=== PATIENT | female | born 1980 | race Caucasian/White ===

== ENCOUNTER → 2016-11-12 | Outpatient (CLI) | payer BC | END | disposition home or self-care (01) | LOC: GMAB 16:34 | PROVIDERS: ATTEND Family Medicine | DX: Z00.00 Encounter for general adult medical examination without abnormal findings (principal) ==

== ENCOUNTER → 2017-05-14 | Outpatient (CLI) | payer BC ==
--- NOTE | 2017-05-15 08:08 | RAD ---
EXAM DESCRIPTION: Knee,Left Complete CLINICAL HISTORY: 36 years, Female, LOCALIZED [place] , [place] UNSPECIFIED COMPARISON: None TECHNIQUE: 4 views of the left knee FINDINGS: No fracture or dislocation. Bones appear normally mineralized with normal trabecular pattern. Normal appearance of medial and lateral compartments on frontal view. Lateral view shows normal position of the patella. No patellar spurring or enthesopathy. No suprapatellar knee joint effusion. Normal contour of quadriceps and patellar tendons. No abnormal patellar tilt or subluxation on patellar sunrise view. IMPRESSION: Negative for fracture or dislocation. Electronically signed by: Ortega Joya MD 05/15/2017 8:05 AM CDT
== END ==
LOC: RAD 09:18
PROVIDERS: ATTEND Orthopaedic Surgery
DX: R22.9 Localized swelling, mass and lump, unspecified (principal)

== ENCOUNTER → 2018-03-15 | Outpatient (CLI) | payer BC | LOC: GMAE 16:52 | PROVIDERS: ATTEND Family Medicine | DX: R53.82 Chronic fatigue, unspecified (principal); M62.81 Muscle weakness (generalized); R73.9 Hyperglycemia, unspecified ==

== ENCOUNTER → 2018-03-17 | Outpatient (CLI) | payer BC | LOC: GMAE 11:19 | PROVIDERS: ATTEND Family Medicine | DX: D51.9 Vitamin B12 deficiency anemia, unspecified (principal) ==

== ENCOUNTER → 2018-04-29 | Outpatient (CLI) | payer BC | LOC: GMAE 17:07 | PROVIDERS: ATTEND Family Medicine | DX: D51.9 Vitamin B12 deficiency anemia, unspecified (principal) ==

== ENCOUNTER → 2018-06-14 | Outpatient (CLI) | payer BC | LOC: GMAE 15:33 | PROVIDERS: ATTEND Family Medicine | DX: D51.0 Vitamin B12 deficiency anemia due to intrinsic factor deficiency (principal) ==

== ENCOUNTER → 2018-06-28 | Outpatient (CLI) | payer BC | LOC: GMAE 17:21 | PROVIDERS: ATTEND Family Medicine | DX: D51.9 Vitamin B12 deficiency anemia, unspecified (principal) ==

== ENCOUNTER → 2018-10-28 | Outpatient (CLI) | payer BC | LOC: GMAE 16:46 | PROVIDERS: ATTEND Family Medicine | DX: E53.8 Deficiency of other specified B group vitamins (principal); R55 Syncope and collapse ==

== ENCOUNTER → 2019-07-06 | Outpatient (CLI) | payer BC | LOC: GMAE 11:43 | PROVIDERS: ATTEND Family Medicine | DX: Z00.00 Encounter for general adult medical examination without abnormal findings (principal) ==